=== PATIENT | female | born 1965 | race Caucasian/White ===

== ENCOUNTER → 2017-10-29 | Day surgery (SDC) | payer OTHER ==
[~2017-10-29] VITALS: Ht 165.1 cm; Wt 86.2 kg
--- NOTE | 2017-11-03 12:10 | Operative Report ---
Operative/Inv Procedure Report Surgery Date: 10/29/17 Name of Procedure: D&C hysteroscopy Pre-Operative Diagnosis: Menorrhagia Post-Operative Diagnosis: Same Estimated Blood Loss: less than 50ml Surgeon/Racecourse Barrier Attendant: Richelle Howard MD Anesthesia: moderate sedation Operative/Procedure Note Note: Procedure note patient was taken the operating room placed on position after adequate anesthesia patient placed in dorsolithotomy position the vagina from dorsal fashion bladder was catheterized examination anesthesia performed at this point Lanier speculum placed into the vagina CO2 tenaculum placed on the Intralipid cervix gentle downward traction performed patient tolerated this well on the cervix was dilated 29 Hegar to allow for the inserted hysteroscope under direct visualization a hysteroscope was placed into the uterus under gas at this point the hysteroscope was removed sharp curettage of the cervix was performed using [place] correct eye sharp curettage the endometrial lining was performed as well as a [place] patient tolerated that well on since removed from the vagina patient was returned spine position awakened from anesthesia and transferred recovery room awake alert counts correct. Findings: Heavy lining with uterine polyp
== END ==
LOC: STS 02:03
DX: N92.0 Excessive and frequent menstruation with regular cycle (principal); N84.0 Polyp of corpus uteri; E03.9 Hypothyroidism, unspecified
CPT/HCPCS: 36415; 81025; 88305; J2250